=== PATIENT | male | born 1965 | race Caucasian/White ===

== ENCOUNTER 2016-11-27 12:56 | Emergency (ER) | payer BC, MEDICAID ==
[2016-11-27 13:14] VITALS: BP 166/102
[2016-11-27] MEDS ORDERED: Sodium Chloride 0.9% 10 ML Syringe FLUSH PRN (13:26)
[2016-11-27] MEDS ORDERED: HYDROmorphone 0.5 MG/0.5 ML Syringe IVPUSH ONE (13:27)
[2016-11-27] MEDS ORDERED: Ondansetron 4 MG/2 ML SDV IVPUSH ONE (13:27)
[2016-11-27] MEDS ORDERED: Cyclobenzaprine 10 MG Tab PO ONE (13:28)
--- NOTE | 2016-11-27 13:35 | EDM.PDOC ---
ED HPI GENERAL MEDICAL PROBLEM - General Chief Complaint: General Stated Complaint: FELL & HIT SIDE ON PIPE Time Seen by Provider: 11/27/16 13:31 Source of Information: Reports: Patient History Limitations: Reports: No Limitations - History of Present Illness INITIAL COMMENTS - FREE TEXT/NARRATIVE: pt was working at [employer] and he fell about 5 feet and landed on the left ches-- lateral. He landed on a pipe. Onset: Today Duration: Minutes: Location: Reports: Chest, Other ( Left chest. ) Associated Symptoms: Reports: Chest Pain, Shortness of Breath, Other (pt fell on his left lateral rib cage. ) Right Middle Flank Pain Score (Numeric/FACES): 8 - Related Data Allergies Allergy/AdvReac Type Severity Reaction Status Date / Time Penicillins Allergy Severe Rash Verified 05/31/13 21:52 Home Meds: Home Meds NK [No Known Home Meds] 05/31/13 [History] Past Medical History - Past Health History Medical/Surgical History: Denies Medical/Surgical History - Infectious Disease History Infectious Disease History: Reports: Chicken Pox Social & Family History - Tobacco Use Smoking Status *Q: Never Smoker - Caffeine Use Caffeine Use: Reports: Coffee - Alcohol Use Days Per Week of Alcohol Use: 1 Number of Drinks Per Day: 1 Total Drinks Per Week: 1 - Recreational Drug Use Recreational Drug Use: No ED ROS GENERAL - Review of Systems Review Of Systems: See Below Constitutional: Reports: No Symptoms HEENT: Reports: No Symptoms Respiratory: Reports: Other (pt has pain when he takes a deep breath in the left lateral rib cage. ) Cardiovascular: Reports: Chest Pain Endocrine: Reports: No Symptoms GI/Abdominal: Reports: No Symptoms : Reports: No Symptoms Musculoskeletal: Reports: Other (pain in the left lateral rib cage. ) ED EXAM, GENERAL - Physical Exam Exam: See Below Free Text/Narrative:: pt arrived with pain in the left rib cage after a fall landing on the left chest and hitting it with a pipe. He has pain with deep breathing. He does not feel markedly sob. Exam Limited By: No Limitations General Appearance: Alert, Anxious, Moderate Distress Ears: Normal TMs Nose: Normal Inspection Throat/Mouth: Normal Inspection Head: Atraumatic Neck: Normal Inspection Respiratory/Chest: Other (pt is very tender in the left lateral chest. It hurts when he takes a deep breath. ) Cardiovascular: Regular Rate, Rhythm GI/Abdominal: Soft, Non-Tender (Male) Exam: Deferred Rectal (Males) Exam: Deferred Back Exam: Normal Inspection Extremities: Normal Inspection Neurological: Alert, Oriented Psychiatric: Normal Affect Course - Vital Signs Last Recorded V/S: Last Vital Signs Temp 35.5 C 11/27/16 13:13 Pulse 80 11/27/16 13:13 Resp 16 11/27/16 13:13 BP 166/102 H 11/27/16 13:13 Pulse Ox 96 11/27/16 13:13 - Orders/Labs/Meds Orders: Active Orders 24 hr Category Date Time Status Sodium Chloride 0.9% [Saline Flush] Med 11/27/16 13:26 Active 10 ml FLUSH ASDIRECTED PRN Saline Lock Insert [OM.PC] Routine Oth 11/27/16 13:26 Ordered Medication Orders Sodium Chloride (Saline Flush) 10 ml FLUSH ASDIRECTED PRN PRN Reason: Keep Vein Open Last Admin: 11/27/16 13:46 Dose: 10 ml Meds: Medications Generic Name Dose Route Start Last Admin Trade Name Freq PRN Reason Stop Dose Admin Sodium Chloride 10 ml 11/27/16 13:26 11/27/16 13:46 Saline Flush FLUSH 10 ml ASDIRECTED PRN Administration Keep Vein Open Discontinued Medications Generic Name Dose Route Start Last Admin Trade Name Freq PRN Reason Stop Dose Admin Cyclobenzaprine HCl 10 mg 11/27/16 13:28 11/27/16 13:44 Flexeril PO 11/27/16 13:29 10 mg ONETIME ONE Administration Hydromorphone HCl 0.5 mg 11/27/16 13:27 Dilaudid IVPUSH 11/27/16 13:28 ONETIME ONE Ketorolac Tromethamine 30 mg 11/27/16 13:40 11/27/16 13:44 Toradol IVPUSH 11/27/16 13:41 30 mg ONETIME ONE Administration Ondansetron HCl 4 mg 11/27/16 13:27 Zofran IVPUSH 11/27/16 13:28 ONETIME ONE - Re-Assessments/Exams Free Text/Narrative Re-Assessment/Exam: 11/27/16 14:50 Pt had a chest xray that was normal. He had a rib detail which showed fractured 9th and 10th ribs without displacement. Departure - Departure Time of Disposition: 14:36 Disposition: Home, Self-Care 01 Condition: Fair Clinical Impression: Rib fractures - Discharge Information Instructions: Rib Fracture Referrals: Jennifer Alonso PA [Primary Care Provider] - Forms: ED Department Discharge Care Plan Goals: rib binder, encourage deep breathing , incentive spirometer, flexeril 10mg 1/2 tab qam and 1 tab hs, torodol 10mg q 6h prn for pain - My Orders Last 24 Hours: My Active Orders 11/27/16 13:26 Sodium Chloride 0.9% [Saline Flush] 10 ml FLUSH ASDIRECTED PRN Saline Lock Insert [OM.PC] Routine - Assessment/Plan Last 24 Hours: My Active Orders 11/27/16 13:26 Sodium Chloride 0.9% [Saline Flush] 10 ml FLUSH ASDIRECTED PRN Saline Lock Insert [OM.PC] Routine
[2016-11-27] MEDS ORDERED: Ketorolac 30 MG/ML SDV IVPUSH ONE (13:40)
--- NOTE | 2016-11-27 14:07 | CR ---
Ribs 2V wo Chest Lt INDICATION: pain in the left rib cage area. COMPARISON: None FINDINGS: 3 views. Nondisplaced fractures 9th and 10th ribs laterally.
--- NOTE | 2016-11-27 14:25 | CR ---
Chest 1V Frontal INDICATION: pain in the chest COMPARISON: None FINDINGS: Single view of the chest shows normal heart size. Lungs clear. No effusions or pneumothor ax. Left ninth and 10th rib fractures seen on rib detail views same day at [facility].
== END 2016-11-27 14:50 | disposition home or self-care (01) ==
LOC: JP.ED 12:56
DX: S22.42XA Multiple fractures of ribs, left side, initial encounter for closed fracture (principal); Z88.0 Allergy status to penicillin; W01.198A Fall on same level from slipping, tripping and stumbling with subsequent striking against other object, initial encounter; Y99.0 Civilian activity done for income or pay
CPT/HCPCS: 71010; 71100; 96374; 96375; 99285; A9270; J1885; J7050

== ENCOUNTER 2020-05-09 09:27 | Emergency (ER) | payer MEDICAID, OTHER ==
[2020-05-09 09:45] VITALS: BP 135/80; PULSE 87
--- NOTE | 2020-05-09 10:03 | EDM.PDOC ---
ED HPI GENERAL MEDICAL PROBLEM - General Chief Complaint: Headache Stated Complaint: LEFT EAR ACHE Time Seen by Provider: 05/09/20 09:51 Source of Information: Reports: Patient, RN Notes Reviewed History Limitations: Reports: No Limitations - History of Present Illness INITIAL COMMENTS - FREE TEXT/NARRATIVE: 54-year-old gentleman presents emergency department today with complaint of ringing in his left ear, he states it started last night has been persistent he has been unable to sleep because the ringing is so loud he denies any trauma he does have a history of migraines but has not had one for some time he does have a left-sided headache but it does not feel like his regular migraine he was exposed to some loud noise yesterday but he normally wears hearing protection when shooting or working with equipment - Related Data Allergies Allergy/AdvReac Type Severity Reaction Status Date / Time Penicillins Allergy Severe Rash Verified 05/09/20 09:41 Home Meds: Home Meds Lisinopril 10 mg PO BEDTIME 02/02/18 [History] atorvaSTATin [Lipitor] 20 mg PO DAILY 05/09/20 [History] Past Medical History HEENT History: Reports: Impaired Vision Cardiovascular History: Reports: Hypertension Neurological History: Reports: Concussion - Infectious Disease History Infectious Disease History: Reports: Chicken Pox, Shingles - Past Surgical History Head Surgeries/Procedures: Reports: None HEENT Surgical History: Reports: Tonsillectomy Cardiovascular Surgical History: Reports: None Neurological Surgical History: Reports: None Dermatological Surgical History: Reports: None Social & Family History - Tobacco Use Tobacco Use Status *Q: Never Tobacco User Second Hand Smoke Exposure: No - Caffeine Use Caffeine Use: Reports: Coffee - Alcohol Use Days Per Week of Alcohol Use: 2 Number of Drinks Per Day: 1 Total Drinks Per Week: 2 - Recreational Drug Use Recreational Drug Use: No ED ROS ENT - Review of Systems Review Of Systems: See Below Constitutional: Reports: No Symptoms. Denies: Fever HEENT: Reports: Ear Pain Respiratory: Reports: No Symptoms Cardiovascular: Reports: No Symptoms ED EXAM, ENT - Physical Exam Exam: See Below Exam Limited By: No Limitations General Appearance: Alert, WD/WN, No Apparent Distress Ears: Normal External Exam, Normal Canal, Hearing Grossly Normal, Normal TMs Nose: Normal Inspection, Normal Mucousa, No Blood Mouth/Throat: Normal Inspection, Normal Gums, Normal Lips, Normal Oropharynx, Normal Teeth Head: Atraumatic, Normocephalic Neck: Normal Inspection, Supple, Non-Tender, Full Range of Motion Respiratory/Chest: No Respiratory Distress Course - Vital Signs Last Recorded V/S: Last Vital Signs Temp 97.5 F 05/09/20 09:47 Pulse 87 05/09/20 09:47 Resp 14 05/09/20 09:47 BP 135/80 05/09/20 09:47 Pulse Ox 100 05/09/20 09:47 Departure - Departure Time of Disposition: 10:03 Disposition: Home, Self-Care 01 Condition: Fair Clinical Impression: Left-sided tinnitus - Discharge Information Instructions: Tinnitus Referrals: Jennifer Alonso PA [Primary Care Provider] - Additional Instructions: Please followup with your primary care provider in 3-5 days if not better, please call return to the emergency department with worsening of symptoms. Sepsis Event Note (ED) - Evaluation Sepsis Screening Result: No Definite Risk - Focused Exam Vital Signs: Vital Signs Temp Pulse Resp BP Pulse Ox 05/09/20 09:47 97.5 F 87 14 135/80 100 05/09/20 09:42 97.5 F 87 14 135/80 100 - Assessment/Plan Plan: Assessment Acuity = acute Site and laterality = left-sided tinnitus Etiology = unknown Manifestations = none Location of injury = Home Lab values = none Plan He is not follow-up with his primary care discuss referral to ear nose and throat This note was dictated using [email or web address]. voice recognition software please call with any questions on syntax or grammar.
== END 2020-05-09 10:10 | disposition home or self-care (01) ==
LOC: JP.ED 09:27
DX: H93.12 Tinnitus, left ear (principal); I10 Essential (primary) hypertension; Z88.0 Allergy status to penicillin; Z79.899 Other long term (current) drug therapy
CPT/HCPCS: 99282; 99283

== ENCOUNTER 2021-05-30 07:11 | Day surgery (SDC) | payer MEDICAID ==
[2021-05-30] MEDS ORDERED: fentaNYL 100 MCG/2 ML SDV ONE (07:20)
[2021-05-30] MEDS ORDERED: Midazolam 1 MG/ML 2 ML SDV ONE (07:20)
[2021-05-30] MEDS ORDERED: Propofol 200 MG/20 ML SDV ONE (07:20)
[2021-05-30] MEDS ORDERED: Sodium Chloride 0.9% 1,000 ML IV SCH (08:00)
[2021-05-30 10:44] VITALS: BP 135/81; PULSE 77
== END 2021-05-30 09:50 | disposition home or self-care (01) ==
LOC: JP.SDS 07:11
PROVIDERS: ATTEND Surgery
DX: Z12.11 Encounter for screening for malignant neoplasm of colon (principal); D12.2 Benign neoplasm of ascending colon; E78.5 Hyperlipidemia, unspecified; I10 Essential (primary) hypertension
CPT/HCPCS: 88305; J2250; J2704; J3010